=== PATIENT | female | born 1995 | race Two or more races ===

== ENCOUNTER 2017-02-12 22:27 | Emergency (ER) | payer OTHER ==
[~2017-02-12] VITALS: Ht 170.2 cm; Wt 54.0 kg
[2017-02-13] MEDS ORDERED: diphenhydrAMINE 50 MG CAPSULE PO ONE
--- NOTE | 2017-02-13 00:11 | NUR ---
Patient discharged to home in stable conditon. Written and verbal after care instructions given. Patient verbalizes understanding of instructions.
[2017-02-13] MEDS ORDERED: diphenhydrAMINE 50 MG/1 ML VIAL IM ONE (00:15)
[2017-02-13] MEDS ORDERED: diphenhydrAMINE 50 MG/1 ML VIAL ONE (00:19)
== END 2017-02-13 00:14 | disposition home or self-care (01) ==
LOC: ER 22:27
DX: R21 Rash and other nonspecific skin eruption (principal); W57.XXXA Bitten or stung by nonvenomous insect and other nonvenomous arthropods, initial encounter; Y92.89 Other specified places as the place of occurrence of the external cause; Y93.89 Activity, other specified; Y99.8 Other external cause status
CPT/HCPCS: A4663; J1200

== ENCOUNTER 2017-03-10 13:01 | Emergency (ER) | payer OTHER ==
[~2017-03-10] VITALS: Ht 170.2 cm; Wt 54.4 kg
--- NOTE | 2017-03-10 14:04 | NUR ---
Patient discharged to home in stable conditon. Written and verbal after care instructions given. Patient verbalizes understanding of instructions.
== END 2017-03-10 14:06 | disposition home or self-care (01) ==
LOC: ER 13:01
DX: A64 Unspecified sexually transmitted disease (principal)
CPT/HCPCS: A4663

== ENCOUNTER 2017-04-27 22:12 | Emergency (ER) | payer OTHER ==
[~2017-04-27] VITALS: Ht 170.2 cm; Wt 54.4 kg
--- NOTE | 2017-04-27 22:46 | NUR ---
PT C/O BLOODY STOOL X 1 DAY. DENIES N/V OR WEAKNESS. STATES NO SIGNIFICANT GI HISTORY. STATES SHE FEARS SHE MIGHT HAVE AN STD, AND WISHES TO BE TESTED.
--- NOTE | 2017-04-27 23:09 | NUR ---
JAIRO NAYLOR AT BEDSIDE FOR MSE.
[2017-04-27 23:34] LABS: *BLOOD, URINE Trace-lysed (NEGATIVE); *CLARITY,URINE CLOUDY (CLEAR); *COLOR,URINE YELLOW (YELLOW); *KETONES,URINE 2+ (NEGATIVE); *PROTEIN,URINE TRACE (NEGATIVE); *UROBILINOGEN,URINE 0.2 E.U./dl (NORMAL); LEUKOCYTE ESTERASE ,URINE 1+ (NEGATIVE); NITRITE, URINE NEGATIVE (NEGATIVE); PH,URINE 5.5 (5.0-8.0); UGLUCOSE NEGATIVE (NEGATIVE)
[2017-04-27 23:38] LABS: BASOPHILS # (AUTO) 0.2 K/uL (0.0-8.0); BASOPHILS % (AUTO) 1.4 % (0.0-2.0); EOSINOPHILS # (AUTO) 0.1 K/uL (0.0-0.7); EOSINOPHILS % (AUTO) 0.9 % (0.0-7.0); HEMATOCRIT 42.7 % (31.2-41.9); HEMOGLOBIN 14.5 g/dL (10.9-14.3); LYMPHOCYTES # (AUTO) 4.4 K/uL (20.0-40.0); LYMPHOCYTES % (AUTO) 36.3 % (20.5-51.5); MEAN CORPUSCULAR HGB CONC 34 g/dL (32.3-35.6); MEAN CORPUSCULAR VOLUME 94.2 fL (75.5-95.3); MONOCYTES # (AUTO) 0.9 K/uL (2.0-10.0); MONOCYTES % (AUTO) 7.2 % (0.0-11.0); NEUTROPHILS # (AUTO) 6.6 K/uL (1.8-8.9); NEUTROPHILS % (AUTO) 54.2 % (38.5-71.5); PLATELET COUNT (AUTO) 185 K/uL (179-408); RED BLOOD CELL COUNT(AUTO) 4.54 MIL/uL (3.63-4.92); WHITE BLOOD COUNT (AUTO) 12.2 K/uL (3.8-11.8)
[2017-04-27 23:42] LABS: *BILIRUBIN,URIN 1+ (NEGATIVE)
[2017-04-27 23:56] LABS: BACTERIA,URINE NONE SEEN /HPF (NONE SEEN); RBC,URINE 0-3 /HPF (0-3); SQUAMOUS EPITHELIAL CELL,UR MANY /HPF (NONE SEEN)
--- NOTE | 2017-04-28 00:27 | NUR ---
Patient discharged to home in stable conditon. Written and verbal after care instructions given. Patient verbalizes understanding of instructions. Pt ambulated from ER w/ steady gait. Pt tok all personal belongings. No distress noted.
[2017-04-28 00:29] VITALS: BP 132/80
== END 2017-04-28 00:30 | disposition home or self-care (01) ==
LOC: ER 22:12
DX: N39.0 Urinary tract infection, site not specified (principal)
CPT/HCPCS: 36415; 81001; 85025; 86592; 87081; 99284; A4663

== ENCOUNTER 2017-05-20 07:39 | Emergency (ER) | payer OTHER ==
[~2017-05-20] VITALS: Ht 170.2 cm; Wt 54.4 kg
--- NOTE | 2017-05-20 08:03 | NUR ---
Dr Martínez at the bedside for MSE.
--- NOTE | 2017-05-20 08:20 | NUR ---
Female wicker molded candles accompanied female patient for (DR Matrínez).
[2017-05-20 09:16] LABS: *BILIRUBIN,URIN NEGATIVE (NEGATIVE); *BLOOD, URINE Trace-intact (NEGATIVE); *CLARITY,URINE CLEAR (CLEAR); *COLOR,URINE YELLOW (YELLOW); *KETONES,URINE NEGATIVE (NEGATIVE); *PROTEIN,URINE NEGATIVE (NEGATIVE); *UROBILINOGEN,URINE 0.2 E.U./dl (NORMAL); LEUKOCYTE ESTERASE ,URINE NEGATIVE (NEGATIVE); NITRITE, URINE NEGATIVE (NEGATIVE); PH,URINE 5.5 (5.0-8.0); UGLUCOSE NEGATIVE (NEGATIVE)
--- NOTE | 2017-05-20 09:16 | NUR ---
Pt states she dose not to wait any longer and wishes to leave. MD provided verbal ACI. Patient discharged to home in stable conditon. Patient verbalizes understanding of instructions.
[2017-05-20 09:18] VITALS: BP 131/70
[2017-05-20 09:46] LABS: BACTERIA,URINE NONE SEEN /HPF (NONE SEEN); MUCUS,URINE FEW /LPF (0-FEW); RBC,URINE 0-3 /HPF (0-3); SQUAMOUS EPITHELIAL CELL,UR MODERATE /HPF (NONE SEEN)
[2017-05-22 05:08] LABS: *GC NAA Negative (Negative); *TRIC.VAG. NAA Negative (Negative)
== END 2017-05-20 09:19 | disposition home or self-care (01) ==
LOC: ER 07:39
DX: N39.0 Urinary tract infection, site not specified (principal)
CPT/HCPCS: 87210; 87491; 87591; A4663

== ENCOUNTER 2017-05-23 14:53 | Emergency (ER) | payer OTHER ==
[~2017-05-23] VITALS: Ht 170.2 cm; Wt 54.4 kg
[2017-05-23] MEDS ORDERED: AZITHROMYCIN 250 MG TABLET ONE (15:19)
[2017-05-23] MEDS ORDERED: CEFTRIAXONE 500 MG VIAL ONE (15:20)
[2017-05-23] MEDS ORDERED: LIDOCAINE HCL 1% 20 ML VIAL ONE (15:20)
[2017-05-23] MEDS: CEFTRIAXONE 500 MG VIAL IM ONE (15:24)
[2017-05-23] MEDS: AZITHROMYCIN 250 MG TABLET PO ONE (15:24)
[2017-05-23 15:29] VITALS: BP 149/94
--- NOTE | 2017-05-23 15:29 | NUR ---
Patient discharged to home in stable conditon. Written and verbal after care instructions given. Patient verbalizes understanding of instructions.
== END 2017-05-23 15:37 | disposition home or self-care (01) ==
LOC: ER 14:53
DX: A74.9 Chlamydial infection, unspecified (principal)
CPT/HCPCS: A4663; J0696; J3490; Q0144

== ENCOUNTER 2017-08-23 18:47 | Emergency (ER) | payer MEDICAID, OTHER ==
[~2017-08-23] VITALS: Ht 170.2 cm; Wt 55.8 kg
[2017-08-23] MEDS ORDERED: PREN-49 PO (19:06)
--- NOTE | 2017-08-23 19:11 | NUR ---
PT STATES SHE IS 11 WEEKS . C/O INCREASING LOWER BACK PAIN. URINE PROVIDED AND SENT TO LAB. A&OX4. BREATHING EVEN AND UNLABORED. AMBULATORY W/ STEADY GAIT. NO ACUTE DISTRESS NOTED.
--- NOTE | 2017-08-23 19:57 | NUR ---
RADIOLOGY CALLED FOR ULTRASOUND. LAB AT PT BEDSIDE FOR BLOOD DRAW.
[2017-08-23 20:11] LABS: BASOPHILS # (AUTO) 0.1 K/uL (0.0-8.0); BASOPHILS % (AUTO) 0.9 % (0.0-2.0); EOSINOPHILS # (AUTO) 0.2 K/uL (0.0-0.7); EOSINOPHILS % (AUTO) 1.7 % (0.0-7.0); HEMATOCRIT 29.6 % (31.2-41.9); HEMOGLOBIN 10.4 g/dL (10.9-14.3); LYMPHOCYTES % (AUTO) 28.6 % (20.5-51.5); MEAN CORPUSCULAR HEMOGLOBIN 32.8 uug (24.7-32.8); MEAN CORPUSCULAR HGB CONC 35 g/dL (32.3-35.6); MONOCYTES # (AUTO) 0.8 K/uL (2.0-10.0); MONOCYTES % (AUTO) 7.2 % (0.0-11.0); NEUTROPHILS # (AUTO) 6.4 K/uL (1.8-8.9); NEUTROPHILS % (AUTO) 61.6 % (38.5-71.5); PLATELET COUNT (AUTO) 134 K/uL (179-408); RED BLOOD CELL COUNT(AUTO) 3.18 MIL/uL (3.63-4.92); WHITE BLOOD COUNT (AUTO) 10.4 K/uL (3.8-11.8)
[2017-08-23 20:26] LABS: CARBON DIOXIDE 24 mmol/L (21-32); CHLORIDE 105 mmol/L (98-107); CREATININE 0.4 mg/dL (0.6-1.3); GLUCOSE 79 mg/dL (74-106); POTASSIUM 3.6 mmol/L (3.5-5.1); UREA NITROGEN, BLOOD 5 mg/dL (7-18)
[2017-08-23 20:31] LABS: ALANINE AMINOTRANSFERASE 26 U/L (14-59); ALKALINE PHOSPHATASE 35 U/L (50-136); ASPARTATE AMINOTRANSFERASE 12 U/L (15-37); BILIRUBIN,DIRECT 0.1 mg/dL (0.0-0.2); BILIRUBIN,TOTAL 0.2 mg/dL (0.2-1.0); TOTAL PROTEIN, SERUM 6.2 g/dL (6.4-8.2)
--- NOTE | 2017-08-23 20:39 | NUR ---
US AT PT BEDSIDE.
--- NOTE | 2017-08-23 21:28 | NUR ---
Patient does not wish to proceed with medical care recommended by Dr. Gale. Patient given information related to possible complications, up to and including , which could occur as a result of leaving the hospital at this time. Patient verbalizes understanding of risks involved due to leaving against medical advice. Patient has signed AMA form. Pt ambulated from ER w/ steady gait. No distress noted. Pt took all personal belongings.
[2017-08-23 21:37] VITALS: BP 118/66
[2017-08-23 21:37] LABS: *BILIRUBIN,URIN NEGATIVE (NEGATIVE); *BLOOD, URINE NEGATIVE (NEGATIVE); *CLARITY,URINE CLEAR (CLEAR); *COLOR,URINE YELLOW (YELLOW); *KETONES,URINE NEGATIVE (NEGATIVE); *PROTEIN,URINE NEGATIVE (NEGATIVE); *UROBILINOGEN,URINE 0.2 E.U./dl (NORMAL); NITRITE, URINE NEGATIVE (NEGATIVE); UGLUCOSE NEGATIVE (NEGATIVE)
[2017-08-23 21:44] LABS: LEUKOCYTE ESTERASE ,URINE TRACE (NEGATIVE)
[2017-08-23 21:45] LABS: MUCUS,URINE FEW /LPF (0-FEW); SQUAMOUS EPITHELIAL CELL,UR MODERATE /HPF (NONE SEEN)
== END 2017-08-23 21:38 | disposition left against medical advice (07) ==
LOC: ER 18:49
DX: O26.891 Other specified pregnancy related conditions, first trimester (principal); R10.30 Lower abdominal pain, unspecified; Z79.899 Other long term (current) drug therapy; Z3A.12 12 weeks gestation of pregnancy
CPT/HCPCS: 36415; 76805; 80048; 80076; 81001; 84702; 85025; 85730; 86850; 86900; 86901; 87086; 87491; 99285; A4663; 70030-TC